=== PATIENT | male | born 1955 | race Caucasian/White ===

== ENCOUNTER 2016-09-20 09:37 | Day surgery (SDC) | payer OTHER ==
[~2016-09-20] VITALS: Ht 172.7 cm; Wt 91.5 kg
[2016-09-20 10:17] VITALS: Ht 172.7 cm; Wt 91.5 kg
[2016-09-20] MEDS ORDERED: NO MEDS (10:26)
[2016-09-20 10:48] VITALS: BP 142/76; PULSE 66; RESP 10
--- NOTE | 2016-09-20 11:03 | OPR ---
Date/Time of Note Date/Time of Note DATE: 09/20/16 TIME: 11:02 Operative Report Preoperative Diagnosis Screening colonoscopy Postoperative Diagnosis Diverticulosis mostly on the left side of the colon Operation/Procedure Performed Colonoscopy Surgeon: LIZY LOCKE MD Anesthesia: MAC Estimated Blood Loss: none Complications: None LIZY LOCKE MD Sep 20, 2016 11:03
[2016-09-20] MEDS ORDERED: MIDAZOLAM 1 MG/ML 2 ML INJ ONE ×2 (11:13)
[2016-09-20] MEDS ORDERED: FENTAnyl 50 MCG/ML VIAL ONE (11:13)
[2016-09-20 11:30] VITALS: BP 139/83; PULSE 56; RESP 18
--- NOTE | 2016-09-20 13:20 | GILP ---
DATE OF PROCEDURE: 09/20/2016 PROCEDURE PERFORMED: Colonoscopy. SURGEON: Adithya Meeks MD INDICATION: This is a 61-year-old male undergoing this procedure for screening colonoscopy. The risks of the procedure related complications, and anesthetic risks and alternatives discussed. Informed consent was obtained. DESCRIPTION OF PROCEDURE: The patient was brought to the GI lab, sedated with 75 mg of fentanyl and 3 mg of Versed. After optimal sedation the scope was passed as much into the rectum, advanced to the sigmoid, descending, transverse colon all the way into cecum and finally into terminal ilium. One foot of terminal ileum was normal. Rest of the colon was normal. There was questionable subendothelial lesion about 0.5 cm in diameter in the cecum next to the appendix. The rest of the colon appeared normal. Moderate diverticulosis seen in the left side of the colon. Retroversion done small lesion identified. The scope was straightened out and removed with good patient tolerance IMPRESSION: 1. Diverticulosis left side of the colon. 2. Hemorrhoids. 3. Negative all the way into cecum. 4. Negative terminal ilium. 5. Clarity and cleanliness was good. 6. Subendothelial lesion identified in the cecum. PLAN: At this point is to continue present care. Repeat colonoscopy after 5 years. Dictated By: Adithya Meeks MD /[email or web address]/aidan /Document#: [id number]
== END 2016-09-20 14:57 | disposition home or self-care (01) ==
LOC: GIL 09:37
PROVIDERS: ATTEND Internal Medicine Gastroenterology
DX: Z12.11 Encounter for screening for malignant neoplasm of colon (principal); K57.90 Diverticulosis of intestine, part unspecified, without perforation or abscess without bleeding; K64.9 Unspecified hemorrhoids
CPT/HCPCS: 45378; J2250; J3010